=== PATIENT | male | born 1950 | race Two or more races ===

== ENCOUNTER 2019-10-12 08:24 | Outpatient (CLI) | payer OTHER | END 2019-10-12 08:38 | disposition home or self-care (01) | LOC: NUCLEAR 08:24 | DX: C20 Malignant neoplasm of rectum (principal) | CPT/HCPCS: 78815; A9552 ==

== ENCOUNTER 2020-10-24 07:38 | Outpatient (CLI) | payer OTHER | END 2020-10-24 08:21 | disposition home or self-care (01) | LOC: NUCLEAR 07:38 | PROVIDERS: ATTEND Internal Medicine Hematology & Oncology | DX: C20 Malignant neoplasm of rectum (principal) | CPT/HCPCS: 78815; A9552 ==